=== PATIENT | male | born 1990 | race Caucasian/White ===

== ENCOUNTER 2022-02-01 06:22 | Inpatient (IN) ==
--- NOTE | 2021-12-24 15:10 | PAT Medication Instructions ---
Medication Instructions Date of Service December 24, 2021 Home Medications duloxetine 60 mg capsule,delayed release (Cymbalta) 60 mg PO QAM ibuprofen 200 mg tablet (Advil) 400 mg PO QAM ibuprofen 800 mg tablet 1,600 mg PO BID ASK your surgeon for instructions ibuprofen 200 mg tablet (Advil) 400 mg PO QAM ibuprofen 800 mg tablet 1,600 mg PO BID Take morning of surgery With a small sip of water, OTHERWISE NOTHING TO EAT OR DRINK AFTER MIDNIGHT: duloxetine 60 mg capsule,delayed release (Cymbalta) 60 mg PO QAM Other Notes If you have any questions please call us at [phone] or [phone] or [phone] or [phone]
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
[~2022-02-01 06:22] MED LIST: ACETAMINOPHEN 500 MG TAB PO SCH; ALLERGY Noted to ORDERED Medication SCH; CeleBREX 200 MG CAP PO SCH; GABAPENTIN 900 MG DOSE PO SCH; LR 15ML/HR IV SCH
[2022-02-01] MEDS ORDERED: MIDAZOLAM HCL 1 MG/ML 2ML VIAL ONE (06:59)
[2022-02-01] MEDS ORDERED: fentaNYL citrate 100 MCG/2 ML VIAL ONE ×2 (06:59→08:08)
[2022-02-01] MEDS ORDERED: BUPIVACAINE/EPINEPHRINE 0.25% 1:200,000 30 ML VIAL ONE (07:00)
[2022-02-01] MEDS ORDERED: ROCURONIUM BROMIDE 10 MG/ML 5 ML VIAL IV ONE (07:04)
[2022-02-01] MEDS ORDERED: PROPOFOL IV EMULSION 10 MG/ML 20 ML VIAL IV ONE (07:04)
[2022-02-01] MEDS ORDERED: DEXAMETHASONE SOD INJ 4 MG/ML VIAL ONE (07:04)
[2022-02-01] MEDS ORDERED: ONDANSETRON INJ 2 MG/ML 2 ML VIAL ONE (07:04)
[2022-02-01] MEDS ORDERED: LIDOCAINE 2% MPF LOCAL 5 ML VIAL INFIL ONE (07:04)
[2022-02-01] MEDS ORDERED: ePHEDrine sulfate 50 MG/ML AMP IV PRN (07:34)
[2022-02-01] MEDS ORDERED: PROMETHAZINE HCL 6.25 MG in SODIUM CHLORIDE 0.9% 50 ML IV PRN (07:34)
[2022-02-01] MEDS ORDERED: fentaNYL citrate 100 MCG/2 ML VIAL IV PRN (07:34)
[2022-02-01] MEDS ORDERED: ATROPINE SULFATE 0.1 MG/ML 10ML SYR IV PRN (07:34)
[2022-02-01] MEDS ORDERED: ONDANSETRON INJ 2 MG/ML 2 ML VIAL IV PRN ×2 (07:34→11:12)
--- NOTE | 2022-02-01 07:37 | History & Physical Bridge Note ---
Date of Service February 01, 2022 History & Physical Bridge Note I have examined the patient, reviewed the History & Physical and in the interval since the performance of the History & Physical I have noted the following changes of clinical significance: no changes noted
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
[2022-02-01] MEDS ORDERED: CLINDAMYCIN 600 MG/D5W 50 ML BAG IV ONE (07:42)
[2022-02-01] MEDS ORDERED: FLOSEAL HEMOSTATIC MATRIX 10ML TOP ONE (09:17)
[2022-02-01] MEDS ORDERED: GLYCOPYRROLATE 0.2 MG/ML VIAL ONE (09:27)
[2022-02-01] MEDS ORDERED: NEOSTIGMINE METHYLSULFATE 1 MG/ML 10ML VIAL ONE (09:27)
--- NOTE | 2022-02-01 09:31 | Operative Report ---
Post Operative Report Pre & Post Diagnosis Operation Date: 02/01/22 07:45 Pre-Op Diagnosis: Intervertebral Disc Disorders with Radiculopathy, Post-Op Diagnosis: Intervertebral Disc Disorders with Radiculopathy, I identified the patient and participated in the time-out.: Yes Procedure Operation Date: 02/01/22 07:45 Actual Procedures 1 lumbar decompression bilateral medial facetectomies and foraminotomies L4-L5 L5-S1. #2 posterior spinal fusion L5-S1. #3 placement posterior instrumentation L5 is 1. #4 interbody fusion L5-S1. #5 placement of Spira 14 x 26 mm cage at L5-S1. #6 placement locally harvested morselized autograft in the posterior gutters. #7 placement of I factor model V toss in the interbody space and posterior lateral gutters. Surgeon Jamaal Tomas, DO Senior Business Objects Developer Tate Mtz Estimated Blood Loss 200 Findings See Below Patient is 5 foot 10 weighing over 129 kg with a BMI in excess of 40. Patient's body habitus did contribute to significant technical difficulty required deepest retractors longus instruments in order to perform his procedure. This at least 50% increased operative time. Specimens None Indications This is a 31-year-old male who presents above-mentioned diagnosis after failed course of nonoperative care is here for surgical invention. Description of Procedure Patient was met with identified informed consent obtained. Patient was then taken to the operative suite underwent a patient placed in a prone position on the Ishmael table atop the Matteo frame. All bony prominences well-padded eyes inspected to ensure no external pressure placed upon the. This point the lumbar spine was prepped and draped in normal sterile fashion. Sharp dissection with the assistance of Bovie cautery was performed down to and exposing the lamina and transverse processes of L5 and sacral ala bilaterally. From caudal to cephalad fashion complete laminectomy of L5 partial laminectomy of L4 was performed including bilateral medial facetectomies and foraminotomies in order to address severe neural compression. Pedicle screws then placed in L5 and S1 levels bilaterally with assistance of fluoroscopy and appropriate sized choco placed. By way of entrance foraminal approach and right a complete discectomy of L5-S1 was performed endplates curetted to subcortical any bone and a 14 x 26 mm spiral cage filled with I factor tapped in position. The rods then locked into final position bilaterally. The transverse processes of L5 and sacral ala burred to subcortical bleeding bone. I factor bone of the test and locally harvested morselized autograft was placed in the posterior gutters. 15 round JO ANN drain inserted. The incision was then closed with 1 Vicryl to fascia 2-0 Vicryl subcutaneously and 4 Monocryl for final skin closure. Steri-Strip sterile dressings placed. Patient waken taken to PACU stable condition. Please note spinal cord monitoring was utilized at the procedure no changes noted. Lastly Tate Mtz was present throughout the entire procedure and while the patient positioning complex portions of the surgery and final skin closure. I attest to the content of the Intraoperative Record and any orders documented therein. Any exceptions are noted below.
--- NOTE | 2022-02-01 10:51 | Anesthesiology Progress Note ---
Date of Service February 01, 2022 Anesthesia Post Procedure Vital Signs Vital Signs: Temp Pulse Pulse Resp BP Pulse Ox O2 Del Method 02/01/22 10:40 73 12 131/90 98 Room Air 02/01/22 10:30 74 21 128/80 93 Room Air 02/01/22 10:20 67 22 126/70 97 Oxymask 02/01/22 10:10 68 19 122/69 98 Oxymask 02/01/22 10:01 36.3 C L 91 H 14 120/78 100 Oxymask 02/01/22 06:45 36.6 C 67 18 135/88 97 Room Air O2 Flow Rate 02/01/22 10:40 02/01/22 10:30 02/01/22 10:20 2 02/01/22 10:10 6 02/01/22 10:01 6 02/01/22 06:45 Pain Intensity Back: Pain Intensity: 3 Transfer of Care Handoff Completed per policy Notes Mental Status: alert / awake / arousable Patient Amnestic to Procedure: Yes Nausea / Vomiting: adequately controlled Pain: adequately controlled Airway Patency, RR, SpO2: stable & adequate BP & HR: stable & adequate Hydration State: stable & adequate Anesthetic Complications: no major complications apparent
--- NOTE | 2022-02-01 10:56 | Fluoroscopy Report ---
FL lumbar spine 2-3V CLINICAL HISTORY: L5-S1 DECOMPRESSION AND FUSION WITH INTERBODY COMPARISON STUDY: None FLUOROSCOPY TIME: 23 seconds. FLUOROSCOPIC IMAGES: 2 FINDINGS: Penetration is suboptimal on the crosstable lateral fluoroscopic image. These images demons trate L5-S1 discectomy, posterior decompression and bilateral pedicle screw fusion. IMPRESSION: Fluoroscopy provided during L5-S1 discectomy, posterior decompression and bilateral pedi humble screw fusion. ACT 112: Negative or not required by law. Electronically signed by: Butch Wynn M.D. 02/01/2022 10:54 AM
[2022-02-01] MEDS ORDERED: traMADol HCL 50 MG TABLET PO PRN (11:12)
[2022-02-01] MEDS ORDERED: SOD PHOSPHATE/SOD BIPHOSPHATE ENEMA 132 ML BTL PR PRN (11:12)
[2022-02-01] MEDS ORDERED: HYDROmorphone INJ 0.5 MG/0.5 ML SYR IV PRN (11:12)
[2022-02-01] MEDS ORDERED: PROMETHAZINE HCL 12.5 MG in SODIUM CHLORIDE 0.9% 50 ML IV PRN (11:12)
[2022-02-01] MEDS ORDERED: METOCLOPRAMIDE HCL INJ 5 MG/ML 2 ML VIAL IV PRN (11:12)
[2022-02-01] MEDS ORDERED: FAMOTIDINE 20 MG TAB PO PRN (11:12)
[2022-02-01] MEDS ORDERED: ALUMINUM/MAGNESIUM SUSP 30 ML UDC PO PRN (11:12)
[2022-02-01] MEDS ORDERED: MAGNESIUM HYDROXIDE SUSP 30 ML UDC PO PRN (11:12)
[2022-02-01] MEDS ORDERED: bisacodyL 10 MG SUPP PR PRN (11:12)
[2022-02-01] MEDS ORDERED: hydrOXYzine HCl 25 MG TAB PO PRN (11:12)
[2022-02-01] MEDS ORDERED: NALOXONE HCL 0.4 MG/1 ML VIAL/CARP IV PRN (11:12)
[2022-02-01] MEDS ORDERED: diphenhydrAMINE Capsule 25 MG CAP PO PRN (11:12)
[2022-02-01] MEDS ORDERED: HYDROmorphone INJ 1 MG/ML SYRINGE IV PRN (11:12)
[2022-02-01] MEDS ORDERED: ONDANSETRON 4 MG OD TAB PO PRN (11:12)
[2022-02-01] MEDS ORDERED: LORazepam 0.5 MG in SYRINGE 0.25 ML IV PRN (11:12)
[2022-02-01] MEDS ORDERED: ACETAMINOPHEN 1,000 MG/100 ML VIAL IV PRN (15:00)
[2022-02-01] MEDS ORDERED: ACETAMINOPHEN 500 MG TAB PO PRN (15:00)
[2022-02-01] MEDS: oxyCODONE HCL IR 5 MG TAB (IMMEDIATE RELEASE) PO PRN ×2 (15:08→19:56)
[2022-02-01] MEDS: LACTATED RINGER'S 1,000 ML IV SCH ×2 (15:15→22:00)
[2022-02-01] MEDS: CLINDAMYCIN 600 MG in DEXTROSE 5% 50 ML IV SCH ×2 (16:11→23:54)
[2022-02-01] MEDS: LORazepam 0.5 MG TAB PO PRN (19:56)
[2022-02-01] MEDS: DOCUSATE SODIUM/SENNA 50/8.6MG TAB PO SCH (20:12)
[2022-02-01] MEDS: NICOTINE 21 MG/24 HR TDSY TD SCH (23:54)
[2022-02-02] MEDS: oxyCODONE HCL IR 5 MG TAB (IMMEDIATE RELEASE) PO PRN ×3 (00:06→22:37)
[2022-02-02] MEDS: POLYETHYLENE (MIRALAX) 17 GM PACK PO SCH ×4 (05:25→23:35)
[2022-02-02 07:36] LABS: Basophils # (auto) 0.02 K/uL (0-0.2); Basophils % (auto) 0.1 %; Eosinophils # (auto) 0.01 K/uL (0-0.50); Eosinophils % (auto) 0.1 %; Hemoglobin 14.1 g/dl (14.0-18.0); Immature Granulocytes # (auto) 0.06 K/uL (0.00-0.02); Immature Granulocytes % (auto) 0.4 %; Lymphocytes # (auto) 2.14 K/uL (1.2-3.4); Lymphocytes % (auto) 12.9 %; Mean Corpuscular Hemoglobin 29.9 pg (25.0-34.0); Mean Corpuscular Hgb Conc 34.4 g/dL (32.0-36.0); Mean Platelet Volume 11.1 fL (9.4-12.4); Monocytes # (auto) 0.71 K/uL (0.24-0.82); Monocytes % (auto) 4.3 %; Neutrophils # (auto) 13.66 K/uL (1.4-6.5); Neutrophils % (auto) 82.2 %; Platelet Count 244 K/uL (130-400); RDW Coefficient of Variation 12.5 % (11.5-14.5); RDW Standard Deviation 39.7 fL (36.4-46.3); Red Blood Count 4.71 M/uL (4.63-6.08)
[2022-02-02 08:10] LABS: BUN Creatinine Ratio 13.6 (10-20); Calcium 8.9 mg/dl (8.5-10.1); Creatinine Clr Calc Pharmacy 142.9 ml/min; Est GFR (African American) 113.2 ml/min; Est GFR (Non-African American) 97.7 ml/min; Potassium 4.2 mmol/L (3.5-5.1)
[2022-02-02] MEDS: DULoxetine HCL 60 MG CAP PO SCH (08:40)
[2022-02-02] MEDS: LORazepam 0.5 MG TAB PO PRN (08:40)
[2022-02-02] MEDS: dexAMETHasone 6 MG in SYRINGE 0 ML IV SCH (08:41)
--- NOTE | 2022-02-02 08:55 | Orthopedic Progress Note ---
Date of Service February 02, 2022 Assessment & Plan (1) Neurogenic claudication due to lumbar spinal stenosis: Plan: Patient is doing well postop day #2. We will continue with GI and DVT prophylaxis as well as pain control. We will mobilize him with physical therapy. We will keep an eye on his drain output. If all goes well he may be deemed safe for home discharge tomorrow. Admission and Anticipated Discharge Date Admission Date: February 01, 2022 Subjective Patient was seen bedside in room 316. He states that he is doing quite well th is morning. His sensation is improved in his right leg already. His pain is well controlled. He is tolerating p.o. He has been up and walking on his own and tolerated this well also. He denies any other numbness, tingling, or paresthesias. Physical Exam Physical Exam: On exam he is alert and oriented. His dressing is intact. His JO ANN drain is intact and holding pressure he has had 45 cc out the shift and 70 on the previous. His abdomen soft nontender his calves are supple nontender. Strength and sensation are grossly intact. Results & Data ([facility]) Vital Signs (Past 12 Hours) Vital Signs Temp Pulse Resp BP Pulse Ox O2 Del Method 02/02/22 07:34 36.8 C 95 H 16 102/65 98 Room Air 02/02/22 03:34 36.7 C 81 18 93/58 L 94 Room Air 02/01/22 23:25 36.7 C 86 18 94/62 L 96 Room Air
[2022-02-02] MEDS: NICOTINE 21 MG/24 HR TDSY TD SCH (16:15)
[2022-02-02] MEDS: DOCUSATE SODIUM/SENNA 50/8.6MG TAB PO SCH (19:59)
[2022-02-03] MEDS: POLYETHYLENE (MIRALAX) 17 GM PACK PO SCH ×2 (06:16→13:06)
[2022-02-03] MEDS: dexAMETHasone 6 MG in SYRINGE 0 ML IV SCH (08:10)
[2022-02-03] MEDS: DULoxetine HCL 60 MG CAP PO SCH (08:11)
[2022-02-03] MEDS: oxyCODONE HCL IR 5 MG TAB (IMMEDIATE RELEASE) PO PRN ×2 (08:12→13:06)
[2022-02-03] MEDS: NICOTINE 21 MG/24 HR TDSY TD SCH (08:12)
--- NOTE | 2022-02-03 12:13 | Discharge Summary ---
Date of Service February 03, 2022 Admission HPI Per Admitting Provider This is a 31-year-old male presents with chronic persistent back and leg pain after failing course of nonoperative care is here for surgical intervention. Principal Diagnosis Lumbar spinal stenosis Discharge Data Allergies Allergy/AdvReac Type Severity Reaction Status Date / Time Penicillins Allergy Severe Throat Verified 02/01/22 06:42 swelling, SOB amoxicillin Allergy Unknown rxn Verified 02/01/22 06:42 Procedures Performed Operation Date: 02/01/22 07:45 Actual Procedures p L5-S1 Decompression and Fusion, Interbody Fusion L5-S1, Spinal Cord Monitoring(Not Applicable) - Jamaal Tomas DO Ordered Studies 02/01/22 07:45 [place] lumbar spine 2-3V Routine Hospital Course (1) Neurogenic claudication due to lumbar spinal stenosis: Patient with lumbar decompression fusion tolerated well was taken to orthopedic floor postoperatively postop day #1 he was up and ambulating progressed to postop 2. Excellent strength testing. JO ANN drain decreased probably. Subsequent discharge home. Discharge orders instructions from the chart for further view. Total Time Total Time Spent Total Time Spent (In Minutes): 20 minutes Discharge Plan Discharge Items Patient Disposition: Home - Self-Care Reason For Visit: Intervertebral Disc Disorders with Radiculopathy, Discharge Diagnosis: lumbar radiculopathy Activity: Per Instructions section Non-emergency contact: Primary Care Provider Call non-emergency contact if: you have any medication questions Follow-up/Referrals: Jerrell Parikh M.D. [Primary Care Provider] - Diet: Regular Addtl Attending Provider Instructions: ACTIVITY RECOMMENDATIONS: SELF CARE INSTRUCTIONS AFTER THORACIC/LUMBAR FUSIONS 1. You may walk to your tolerance. It is good exercise for your legs and back. Expect some back and intermittent leg aches and pains. 2. You may perform "counter-top" level activities (make a sandwich, pasquale with a project, etc.). 3. No bending or lifting of more than 10 pounds or back twisting of any nature (roll like a log when turning in bed). 4. You may ride in a car for 20-30 minutes at a time. No driving until after your first visit with your doctor. 5. Frequent changes of position and restricting sitting to 30 minutes at a time will help limit the amount of back spasms and stiffness you may experience. 6. You may discontinue the use of ambulatory aids (cane, crutches, etc.) once your strength and confidence allow. 7. You may line installer trolley the shower and let water strike your incision when you arrive home at least once daily. Do not take a tub bath, sit in a hot tub or g o into a swimming pool until after your first recheck in the office. SPECIAL CARE INSTRUCTIONS: VERY IMPORTANT TO READ AND REVIEW A. Your surgical incision has been closed with a cosmetic suture under the skin that will dissolve in about 6 weeks. In 14 days, you can use a pair of clean scissors and cut the suture that is left outside of the skin at the ends of your incision. 1. The small skin tapes can be removed 7 days after surgery if they have not fallen off by that point. 2. You may keep the wound open to air as much as possible to promote healing after post-op day number 5 unless told otherwise by your doctor. 3. If you think the wound looks like it is becoming infected (redness or worsening drainage) and/or you are experiencing fever, chill or worsening back pain and muscle spasms, contact the office so that we may evaluate you as soon as possible. B. Complications are uncommon, but please contact us if you have any signs or symptoms of: 1. wound infection (fever higher than 102.5 degrees F, redness, separation of wound, drainage, or increasing pain from the incision) 2. blood clots in legs (pain, swelling, redness and warmth in legs) 3. urinary tract infection (fever higher than 102.5 degrees F, burning upon urination or increased frequency of urination) 4. nerve problems (inability to walk on your toes or heels, numbness, loss of bowel or bladder control) 5. any other symptoms that concern you C. Please call the office at if you have any concerns or questions about your operation or recovery. D. No smoking! Smoking drastically decreases the chance of a solid fusion. E. Do not take any anti-inflammatory medications (Indocin, Advil, Motrin, Aspirin, Naprosyn, etc.) as these may inhibit the chance of a solid fusion. Tylenol is okay to take for pain. MANAGING PAIN AFTER SPINAL SURGERY 1. Narcotic medication is intended for short-term use and will be provided for surgical pain. Surgical pain usually lasts for a period of 4-6 weeks. Narcotic medication includes Percocet, Vicodin, Darvocet, Tylenol #3 or Lortab. 2. Longer-term pain is more appropriately treated with non-narcotic medication such as Tylenol ES. 3. Muscle spasm is not appropriately treated with narcotics. Muscle relaxers such as Soma, Flexeril or Skelaxin can be used along with Tylenol ES. 4. Remember that we all live with some "aches and pains". This is not unusual or uncommon after an injury or as we get older. a. Back pain is expected and may include muscle spasms for 4 to 6 weeks after surgery. The pain should gradually improve. If the pain worsens for no apparent reason, please contact the office. b. Intermittent leg pain may also be experienced and should not be concerned about unless it worsens for no apparent reason. If so, please contact the office. 5. We will provide appropriate medication within the normal guidelines of their prescribed use. We will also be very cautious and aware of potential abuse and extended duration of patients' medication needs. a. Pain medications are for your comfort and to assist with sleep and rest so that the tissue can heal. They are not provided in order to return to normal activity and should not be used through the day. To do so or worsening pain at night can result from ongoing tissue damage and development of tolerance to the prescribed medicine. 6. Please allow 2-3 days to process refills. Prescriptions will not be mailed but must be picked up at the office. FOLLOW UP VISIT: Keep your scheduled follow-up appointment. Any questions, please call the office at . Pending Studies at Discharge: No Stand-Alone Forms: My [facility] [employer], Smoking Cessation Medications and DC Order Prescriptions: New tramadol 50 mg tablet 50 mg PO Q6H PRN (Reason: pain, moderate) Qty: 30 0RF oxycodone 5 mg tablet 5 mg PO Q6H PRN (Reason: pain, severe) Qty: 30 0RF tramadol 50 mg tablet 50 mg PO Q6H PRN (Reason: pain, moderate) Qty: 30 0RF oxycodone 5 mg tablet 5 mg PO Q6H PRN (Reason: pain, severe) Qty: 30 0RF Continued duloxetine [Cymbalta] 60 mg Capsule,Delayed Release(Dr/Ec) 60 mg PO QAM Discontinued ibuprofen 800 mg Tablet 1,600 mg PO BID ibuprofen [Advil] 200 mg Tablet 400 mg PO QAM Discharge Orders: Discharge Order (Routine); Ordered 02/03/22 Ordered By: Jamaal Tomas Admission Data Admit Date/Time: 02/01/22 09:34 Attending Provider: Jamaal Tomas Admit Provider: Jamaal Tomas Primary Care Provider: Jerrell Parikh
== END 2022-02-03 14:22 | disposition home or self-care (01) | DRG 454 ==
LOC: ASU 06:22 → PACUINP 09:34 → 3E 12:48
DX: M51.16 Intervertebral disc disorders with radiculopathy, lumbar region; E66.9 Obesity, unspecified; Z88.1 Allergy status to other antibiotic agents; M48.062 Spinal stenosis, lumbar region with neurogenic claudication; Z68.41 Body mass index [BMI] 40.0-44.9, adult; Z88.0 Allergy status to penicillin; Z86.16 Personal history of COVID-19; F17.210 Nicotine dependence, cigarettes, uncomplicated